=== PATIENT | female | born 1935 | race Hispanic/Latino ===

== ENCOUNTER 2020-06-20 19:40 | Inpatient (IN) | payer OTHER ==
[~2020-06-20] VITALS: Ht 154.9 cm; Wt 108.9 kg
[2020-06-20] MEDS ORDERED: KETOROLAC 15MG/ML VIAL (15MG/ML) ONE (19:49)
[2020-06-20 19:59] LABS: BASOPHILS % (AUTO) 0.2 % (0.0-5.0); HEMATOCRIT 40.6 % (36-48); LYMPHOCYTES % (AUTO) 18.3 % (21.0-51.0); MEAN CORPUSCULAR HEMOGLOBIN 30.5 pg (27.0-33.0); MEAN CORPUSCULAR HGB CONC 33.5 g/dL (32.0-36.0); MONOCYTES % (AUTO) 5.8 % (3.0-13.0); NEUTROPHILS % (AUTO) 73.4 % (40.0-77.0); PLATELET COUNT (AUTO) 195 K/uL (130-400); RED BLOOD CELL COUNT(AUTO) 4.46 MIL/uL (4.00-5.50); WHITE BLOOD COUNT (AUTO) 9.9 K/uL (4.8-10.8)
[2020-06-20 20:10] LABS: CREATININE 0.9 mg/dL (0.5-1.5)
[2020-06-20 20:11] LABS: INR 0.98 (0.85-1.15); PROTHROMBIN TIME 10.7 SEC (9.6-11.6)
[2020-06-20 20:13] LABS: PARTIAL THROMBOPLASTIN TIME 25.7 SEC (26.3-35.5)
[2020-06-20 20:15] LABS: ALBUMIN 3.8 g/dL (3.5-5.0); BILIRUBIN,TOTAL 0.8 mg/dL (0.2-1.0)
[2020-06-20 21:49] LABS: APPEARANCE,URINE Clear (CLEAR); BILIRUBIN,URINE Negative (NEGATIVE); COLOR,URINE Yellow (YELLOW); GLUCOSE, URINE (UA) Negative (NEGATIVE); KETONES,URINE Negative (NEGATIVE); LEUKOCYTE ESTERASE ,URINE Negative (NEGATIVE); NITRATE,URINE Negative (NEGATIVE); OCCULT BLOOD,URINE Negative (NEGATIVE); PH,URINE 5.5 (5.0-8.0); PROTEIN,URINE Negative (NEGATIVE); UROBILINOGEN,URINE 0.2 mg/dL (0.2-1.0)
[2020-06-20 23:45] VITALS: BP 147/81
[2020-06-21] MEDS ORDERED: MORPHINE 2 MG SYG ONE (00:33)
[2020-06-21] MEDS ORDERED: DOCU-133 PO (00:44)
[2020-06-21] MEDS ORDERED: ALBU1.252 IH (00:44)
[2020-06-21] MEDS ORDERED: LEVO150C4 PO (00:44)
[2020-06-21] MEDS ORDERED: VITAD50000 PO (00:44)
[2020-06-21] MEDS ORDERED: MORPHINE 2 MG SYG IVP PRN (01:00)
[2020-06-21] MEDS ORDERED: LABETALOL 20MG VIAL IV PRN (01:00)
[2020-06-21] MEDS ORDERED: CLONIDINE HCL 0.1 MG TABLET PO PRN (01:00)
[2020-06-21] MEDS ORDERED: ONDANSETRON 4MG INJ IVP PRN (01:00)
[2020-06-21 04:17] VITALS: BP 106/53
[2020-06-21 08:00] VITALS: BP 128/70
[2020-06-21] MEDS: ACETAMINOPHEN 325 MG TAB PO PRN (08:12)
[2020-06-21] MEDS: PANTOPRAZOLE 40 MG TAB DR PO SCH (08:13)
[2020-06-21] MEDS: ENOXAPARIN SODIUM 40 MG/0.4 ML SYRINGE SQ SCH (08:25)
[2020-06-21 11:37] VITALS: BP 117/64
[2020-06-21] MEDS: HYDROCODONE/ACETAMINOPHEN 5/325 MG TAB PO PRN ×2 (13:13→21:16)
[2020-06-21 16:00] VITALS: BP 117/64
[2020-06-21] MEDS: DOCUSATE SODIUM 100 MG CAP PO PRN (17:41)
[2020-06-21 20:30] VITALS: BP 99/53
[2020-06-21 23:44] VITALS: BP 117/54
[2020-06-22] VITALS (29 sets, daily range): BP systolic 96–190; BP diastolic 51–91
[2020-06-22 05:01] LABS: HEMATOCRIT 33.3 % (36-48); MEAN CORPUSCULAR HEMOGLOBIN 29.8 pg (27.0-33.0); MEAN CORPUSCULAR HGB CONC 32.4 g/dL (32.0-36.0); MEAN CORPUSCULAR VOLUME 91.7 fL (79-99); RED BLOOD CELL COUNT(AUTO) 3.63 MIL/uL (4.00-5.50); RED CELL DISTRIBUTION WIDTH 13.1 % (11.0-15.5); WHITE BLOOD COUNT (AUTO) 8.3 K/uL (4.8-10.8)
[2020-06-22] MEDS: LEVOTHYROXINE 150 MCG TABLET PO SCH (05:57)
[2020-06-22] MEDS: PANTOPRAZOLE 40 MG TAB DR PO SCH (07:49)
[2020-06-22] MEDS: HYDROCODONE/ACETAMINOPHEN 5/325 MG TAB PO PRN ×2 (07:50→20:55)
[2020-06-22] MEDS: ENOXAPARIN SODIUM 40 MG/0.4 ML SYRINGE SQ SCH (09:00)
[2020-06-22] MEDS ORDERED: DEXAMETHASONE SOD PHOSPHATE 10MG/ML 1ML VIAL ONE (14:39)
[2020-06-22] MEDS ORDERED: ONDANSETRON 4MG INJ ONE (14:39)
[2020-06-22] MEDS ORDERED: SUCCINYLCHOLINE CHLORIDE 20 MG/ML 10 ML VIAL ONE (14:39)
[2020-06-22] MEDS ORDERED: LIDOCAINE PF 100MG/5ML (2%) SYRINGE 5ML ONE (14:39)
[2020-06-22] MEDS ORDERED: ROCURONIUM 10MG/1ML SYR 10 MG/ML ML ONE (14:40)
[2020-06-22] MEDS ORDERED: PROPOFOL 10 MG/ML 20ML VIAL IV ONE (14:40)
[2020-06-22] MEDS ORDERED: FENTANYL CITRATE PF 50 MCG/1 ML 2ML VIAL ONE ×2 (14:40→17:49)
[2020-06-22] MEDS ORDERED: MIDAZOLAM HCL 1 MG/ML 2ML VIAL ONE (14:40)
[2020-06-22] MEDS ORDERED: GLYCOPYRROLATE 1 MG/5 ML SYRINGE ONE (14:40)
[2020-06-22] MEDS ORDERED: NEOSTIGMINE 5MG/5ML SYR IV ONE (14:40)
[2020-06-22] MEDS ORDERED: CEFAZOLIN SODIUM 1 GM VIAL ONE (15:53)
[2020-06-23] MEDS: CEFAZOLIN SODIUM 1 GM VIAL IVP SCH ×2 (00:33→08:42)
[2020-06-23] MEDS: ACETAMINOPHEN 325 MG TAB PO PRN ×3 (03:09→20:53)
[2020-06-23 03:40] VITALS: BP 134/71
[2020-06-23 05:29] LABS: APPEARANCE,URINE Clear (CLEAR); BILIRUBIN,URINE Negative (NEGATIVE); COLOR,URINE Yellow (YELLOW); GLUCOSE, URINE (UA) Negative (NEGATIVE); KETONES,URINE Negative (NEGATIVE); LEUKOCYTE ESTERASE ,URINE Small (NEGATIVE); NITRATE,URINE Negative (NEGATIVE); OCCULT BLOOD,URINE Moderate (NEGATIVE); PH,URINE 5.5 (5.0-8.0); PROTEIN,URINE Trace mg/dL (NEGATIVE)
[2020-06-23] MEDS: LEVOTHYROXINE 150 MCG TABLET PO SCH (05:53)
[2020-06-23 06:13] LABS: BACTERIA,URINE None Seen /HPF (None Seen); SQUAMOUS EPITHELIAL CELL,UR Rare /HPF (0-2)
[2020-06-23] MEDS ORDERED: ACETAMINOPHEN WITH CODEINE 1 TAB TAB PO PRN (07:45)
[2020-06-23] MEDS ORDERED: TRAMADOL HCL 50 MG TABLET PO PRN (07:45)
[2020-06-23] MEDS: ENOXAPARIN SODIUM 40 MG/0.4 ML SYRINGE SQ SCH (08:42)
[2020-06-23] MEDS: PANTOPRAZOLE 40 MG TAB DR PO SCH (08:42)
[2020-06-23 09:12] VITALS: BP 140/95
[2020-06-23 11:53] VITALS: BP 156/77
[2020-06-23] MEDS: KETOROLAC 15MG/ML VIAL (15MG/ML) IV PRN ×2 (12:15→20:55)
[2020-06-23] MEDS ORDERED: POLYETHYLENE GLYCOL 3350 17 GM POWD.PACK PO SCH (14:45)
[2020-06-23 16:43] VITALS: BP 124/55
[2020-06-23 19:59] VITALS: BP 157/61
[2020-06-23 23:29] VITALS: BP 150/50
[2020-06-24 03:46] VITALS: BP 154/63
[2020-06-24 05:28] LABS: HEMATOCRIT 27.1 % (36-48); MEAN CORPUSCULAR HEMOGLOBIN 30.2 pg (27.0-33.0); MEAN CORPUSCULAR HGB CONC 32.8 g/dL (32.0-36.0); MEAN CORPUSCULAR VOLUME 91.9 fL (79-99); RED BLOOD CELL COUNT(AUTO) 2.95 MIL/uL (4.00-5.50); RED CELL DISTRIBUTION WIDTH 13.1 % (11.0-15.5); WHITE BLOOD COUNT (AUTO) 8.5 K/uL (4.8-10.8)
[2020-06-24] MEDS: LEVOTHYROXINE 150 MCG TABLET PO SCH (06:53)
[2020-06-24 08:00] VITALS: BP 143/71
[2020-06-24] MEDS: PANTOPRAZOLE 40 MG TAB DR PO SCH (08:25)
[2020-06-24] MEDS: ENOXAPARIN SODIUM 40 MG/0.4 ML SYRINGE SQ SCH (08:26)
[2020-06-24] MEDS: POLYETHYLENE GLYCOL 3350 17 GM POWD.PACK PO SCH (08:26)
[2020-06-24 12:55] VITALS: BP 130/75
[2020-06-24] MEDS: METOPROLOL TARTRATE 25 MG TAB PO SCH ×2 (12:59→19:59)
[2020-06-24] MEDS: DOCUSATE SODIUM 100 MG CAP PO PRN (14:13)
[2020-06-24 16:36] VITALS: BP 152/70
[2020-06-24] MEDS: ACETAMINOPHEN 325 MG TAB PO PRN (17:21)
[2020-06-24 20:13] VITALS: BP 122/60
[2020-06-25 00:15] VITALS: BP 132/63
[2020-06-25 04:33] VITALS: BP 122/68
[2020-06-25 05:13] LABS: HEMATOCRIT 27.5 % (36-48); MEAN CORPUSCULAR HEMOGLOBIN 29.9 pg (27.0-33.0); MEAN CORPUSCULAR HGB CONC 32.4 g/dL (32.0-36.0); MEAN CORPUSCULAR VOLUME 92.3 fL (79-99); RED BLOOD CELL COUNT(AUTO) 2.98 MIL/uL (4.00-5.50); RED CELL DISTRIBUTION WIDTH 13.1 % (11.0-15.5); WHITE BLOOD COUNT (AUTO) 8.8 K/uL (4.8-10.8)
[2020-06-25 05:29] LABS: ALBUMIN 2.7 g/dL (3.5-5.0); BILIRUBIN,TOTAL 1.3 mg/dL (0.2-1.0); CREATININE 0.8 mg/dL (0.5-1.5); POTASSIUM 4.1 mmol/L (3.5-5.1); TOTAL PROTEIN, SERUM 5.9 g/dL (6.0-8.3)
[2020-06-25] MEDS: LEVOTHYROXINE 150 MCG TABLET PO SCH (05:54)
[2020-06-25 07:50] VITALS: BP 137/61
[2020-06-25] MEDS: PANTOPRAZOLE 40 MG TAB DR PO SCH (08:19)
[2020-06-25] MEDS: DOCUSATE SODIUM 100 MG CAP PO PRN (08:19)
[2020-06-25] MEDS: ENOXAPARIN SODIUM 40 MG/0.4 ML SYRINGE SQ SCH (08:20)
[2020-06-25] MEDS: POLYETHYLENE GLYCOL 3350 17 GM POWD.PACK PO SCH (08:20)
[2020-06-25] MEDS: METOPROLOL TARTRATE 25 MG TAB PO SCH ×2 (08:24→20:22)
[2020-06-25] MEDS ORDERED: BISACODYL 10 MG SUPP.RECT RC PRN (09:45)
[2020-06-25 11:24] VITALS: BP 136/68
[2020-06-25 16:07] VITALS: BP 134/76
[2020-06-25] MEDS: ACETAMINOPHEN 325 MG TAB PO PRN (16:21)
[2020-06-25 23:42] VITALS: BP 130/70
== END 2020-06-26 00:11 | DRG 481 ==
LOC: EDH 19:40 → EDHIP 22:07 → 3AH 23:01
PROVIDERS: ADMIT Internal Medicine Critical Care Medicine; ATTEND Internal Medicine Critical Care Medicine
PROC: 0QSC04Z Reposition Left Lower Femur with Internal Fixation Device, Open Approach (ICD-10-PCS; principal; 2020-06-22 15:28)
DX: S72.402A Unspecified fracture of lower end of left femur, initial encounter for closed fracture (principal); M97.12XA Periprosthetic fracture around internal prosthetic left knee joint, initial encounter; Z68.42 Body mass index [BMI] 45.0-49.9, adult; F05 Delirium due to known physiological condition; L80 Vitiligo; E66.01 Morbid (severe) obesity due to excess calories; E03.9 Hypothyroidism, unspecified; J44.9 Chronic obstructive pulmonary disease, unspecified; W01.0XXA Fall on same level from slipping, tripping and stumbling without subsequent striking against object, initial encounter; M21.20 Flexion deformity, unspecified site; Z20.822 Contact with and (suspected) exposure to COVID-19; Z96.653 Presence of artificial knee joint, bilateral; K59.00 Constipation, unspecified; T50.995A Adverse effect of other drugs, medicaments and biological substances, initial encounter; Y92.239 Unspecified place in hospital as the place of occurrence of the external cause; Z87.891 Personal history of nicotine dependence; Z90.710 Acquired absence of both cervix and uterus; Y93.89 Activity, other specified; Y92.89 Other specified places as the place of occurrence of the external cause; Y99.8 Other external cause status; Z90.49 Acquired absence of other specified parts of digestive tract
CPT/HCPCS: 36415; 71045; 72170; 73552; 73560; 73700; 80048; 80053; 81001; 81003; 85025; 85027; 85610; 85730; 86850; 86900; 86901; 87088; 87426; 93005; 97039; G0378; J0330; J0690; J1100; J1650; J1885; J2001; J2250; J2405; J2704; J2710; J3010; J3490; J7120; U0003